=== PATIENT | female | born 1980 | race Caucasian/White ===

== ENCOUNTER → 2016-11-14 | Outpatient (CLI) | payer MEDICAID ==
[~2016-11-14] MED LIST: ABILIFY; ABILIFY 10MG TA10 MG PO; ABILIFY5 MG PO; ACIPHEX20 MG PO; ALEVE220 MG PO; AMBIEN 10MG10 MG PO; AMITRIPTYLINE H10 M1 PO; AMITRIPTYLINE10 MG PO; ANTIBIOTIC; ANTIVERT 25MG25 MG PO; ANTIVERT/2525 M1 PO; APRISO0.375 GM PO; AZULFIDINE500 MG/TAB PO; B-121000 MCG PO; BACTRIM DS 8001 TAB PO; BUPROPRION; BUTALBITAL/APAP1 CAP PO; CEFTIN250 M1 PO; CEPHALEXIN500 M1 PO; CIPRO 500MG TA500 MG PO; ELAVIL50 MG PO; ESZOPICOLONE; FENTANYL 25 MCG TOP; FIORICET 325 MG1 TA1 PO; FIORICET 325 MG1 TAB; FIORICET 325 MG1 TAB PO; FLEXERIL 1010 MG/TAB PO; FLEXERIL10 MG PO; FLOVENT 110MCG7.9 GM IH; GABAPENTIN PO; GLUCOPHAGE PO; GLUCOPHAGE1000 MG PO; HUMALOG100 U/ML; HUMALOG100 U/ML SC; IBU800 M1 PO; IMITREX 6M6 MG/0.5 M SQ; INDERAL; INDERAL 10MG10 MG PO; INDERAL 20MG20 MG PO; INSULIN HUMA100 U/ML IJ; INSULIN NOVO100 U/ML IJ; IRON TABLETS325 MG PO; IRON50 MG PO; LANTIS SQ; LANTUS; LANTUS SQ; LANTUS100 U/ML; LANTUS100 U/ML SC; LEVAQUIN 250MG250 MG PO; LEVAQUIN 5500 MG/TAB PO; LEVBID0.375 MG PO; LEVEMIR FLEX100 U/ML SQ; LEVEMIR SQ; LEVOTHYROXINE PO; LEVOXYL0.088 MG PO; LEVOXYL0.1 MG PO; LEVOXYL0.112 MG PO; LEVOXYL0.15 MG PO; LEXAPRO 10MG10 MG PO; LEXAPRO20 MG PO; LIALDA 1.2 GM1.2 GM PO; LORTAB 5/500 501 TAB PO; MAXALT MLT10 MG/TAB PO; METHOCARBAMOL500 MG PO; NAPROSYN500 MG PO; NAPROXEN 3375 MG/TAB PO; NEURONTIN300 MG/CAP PO; NORCO 325 MG-51 TAB PO; NORCO 325 MG-7.1 TAB PO; NOVLOG SQ; NOVOLOG 100U100 U/M1 SC; NOVOLOG 100U100 U/M1 SQ; NOVOLOG FLEX100 U/ML SQ; NOVOLOG100 U/ML SC; PAMELOR 10MG10 MG PO; PAMELOR50 MG PO; PENTASA250 MG PO; PERCOCET 325 MG1 TA2 PO; PERCOCET 5/321 UDTAB PO; PHENERGAN 25 TA25 MG PO; PHENERGAN25 MG RC; POTASSIUM CH2 MEQ/ML PO; PREDNISONE1 MG PO; PREVACID 30MG30 M1 PO; PREVACID 30MG30 MG PO; PRILOSEC 20MG20 MG PO; PRINIVIL5 MG PO; PROMETHAZINE12.5 M5 PO; REGLAN 10MG10 MG/TAB PO; SINGULAIR 110 MG/TAB PO; SULFASALAZINE500 MG PO; SYMLINPEN1000 MCG/M SQ; SYNTHROID0.088 MG/T PO; SYNTHROID0.1 MG/TAB PO; SYNTHROID0.112 MG/T PO; SYNTHROID0.2 MG/TAB PO; TOPAMAX 100MG100 M1 PO; TRESIBA FL100 UNIT/1 SQ; TRIAMCINOLONE A15 G2 TP; TYLENOL/CODEINE1 ML PO; ULTRAM 50MG TAB50 MG PO; ULTRAM50 MG PO; UP TO DATE; VALTREX1 GM PO; VENTOLIN0.09 MG IH; VIIBRYD10 MG PO; VITAMIN D31000 IU PO; WELLBUTRIN XL150 MG PO; ZOCOR 10MG10 MG PO; ZOCOR 20MG20 MG PO; ZOFRAN 4MG T4 MG/TAB PO; ZOFRAN4 M1 PO; [UNRECOGNIZED DRUG - OTHER]; [UNRECOGNIZED DRUG - OTHER]; [UNRECOGNIZED DRUG - OTHER]; [UNRECOGNIZED DRUG - OTHER]; [UNRECOGNIZED DRUG - OTHER] PO; [UNRECOGNIZED DRUG - REMARK]
== END ==
LOC: COL.RAD 10:09
DX: K50.119 Crohn's disease of large intestine with unspecified complications (principal); K52.89 Other specified noninfective gastroenteritis and colitis
CPT/HCPCS: Q9967

== ENCOUNTER 2017-01-22 10:35 | Emergency (ER) | payer MEDICAID ==
[~2017-01-22] VITALS: Ht 162.6 cm; Wt 71.8 kg
[~2017-01-22 10:35] MED LIST changes: -B-121000 MCG PO; -SYMLINPEN1000 MCG/M SQ; -SYNTHROID0.088 MG/T PO; -TRESIBA FL100 UNIT/1 SQ; -VITAMIN D31000 IU PO
[2017-01-22 11:02] VITALS: BP 127/97; TEMP 97.9
[2017-01-22] MEDS ORDERED: SYNTHROID0.088 MG/T PO (11:51)
[2017-01-22] MEDS ORDERED: TRESIBA FL100 UNIT/1 SQ (11:52)
[2017-01-22] MEDS ORDERED: B-121000 MCG PO (11:54)
[2017-01-22] MEDS ORDERED: VITAMIN D31000 IU PO (11:55)
[2017-01-22 12:52] VITALS: PULSE 103
== END 2017-01-22 12:53 | disposition home or self-care (01) ==
LOC: COL.ER 10:35
DX: J20.9 Acute bronchitis, unspecified (principal); I10 Essential (primary) hypertension; Z79.4 Long term (current) use of insulin

== ENCOUNTER → 2017-04-01 | Outpatient (CLI) | payer MEDICAID ==
[~2017-04-01] MED LIST changes: +B-121000 MCG PO; +SYMLINPEN1000 MCG/M SQ; +SYNTHROID0.088 MG/T PO; +TRESIBA FL100 UNIT/1 SQ; +VITAMIN D31000 IU PO
== END ==
LOC: COL.RAD 05:55
DX: R11.0 Nausea (principal); K30 Functional dyspepsia
CPT/HCPCS: A9541

== ENCOUNTER 2017-05-18 06:57 | Emergency (ER) | payer MEDICAID ==
[~2017-05-18] VITALS: Ht 162.6 cm; Wt 81.4 kg
[~2017-05-18 06:57] MED LIST changes: -SYMLINPEN1000 MCG/M SQ
[2017-05-18 06:59] VITALS: TEMP 98.4
[2017-05-18] MEDS ORDERED: SYMLINPEN1000 MCG/M SQ (07:17)
[2017-05-18 08:30] VITALS: BP 124/84; PULSE 102
== END 2017-05-18 08:31 | disposition home or self-care (01) ==
LOC: COL.ER 06:57
DX: G43.909 Migraine, unspecified, not intractable, without status migrainosus (principal); E10.9 Type 1 diabetes mellitus without complications; Z79.4 Long term (current) use of insulin; E03.9 Hypothyroidism, unspecified; F32.9 Major depressive disorder, single episode, unspecified; K21.9 Gastro-esophageal reflux disease without esophagitis
CPT/HCPCS: J0595; J2550

== ENCOUNTER 2017-06-08 16:18 | Emergency (ER) | payer MEDICAID ==
[~2017-06-08] VITALS: Ht 162.6 cm; Wt 80.0 kg
[~2017-06-08 16:18] MED LIST changes: +SYMLINPEN1000 MCG/M SQ
[2017-06-08 16:23] VITALS: BP 138/79; TEMP 98.7
[2017-06-08 18:03] VITALS: PULSE 104
== END 2017-06-08 18:14 | disposition home or self-care (01) ==
LOC: COL.ER 16:18
DX: G43.909 Migraine, unspecified, not intractable, without status migrainosus (principal); E11.9 Type 2 diabetes mellitus without complications; F32.9 Major depressive disorder, single episode, unspecified; E03.9 Hypothyroidism, unspecified; Z79.4 Long term (current) use of insulin
CPT/HCPCS: J0595; J2550

== ENCOUNTER 2017-07-07 08:38 | Emergency (ER) | payer MEDICAID ==
[~2017-07-07] VITALS: Ht 162.6 cm; Wt 83.2 kg
[2017-07-07 11:23] VITALS: BP 138/88; PULSE 95; TEMP 99.4
== END 2017-07-07 11:24 | disposition home or self-care (01) ==
LOC: COL.ER 08:38
DX: G43.909 Migraine, unspecified, not intractable, without status migrainosus (principal); E11.9 Type 2 diabetes mellitus without complications; F32.9 Major depressive disorder, single episode, unspecified; E78.5 Hyperlipidemia, unspecified; E03.9 Hypothyroidism, unspecified; K21.9 Gastro-esophageal reflux disease without esophagitis; F17.210 Nicotine dependence, cigarettes, uncomplicated; Z90.710 Acquired absence of both cervix and uterus; Z79.4 Long term (current) use of insulin
CPT/HCPCS: J0595; J1200; J2550

== ENCOUNTER 2017-08-17 16:11 | Emergency (ER) | payer MEDICAID ==
[~2017-08-17] VITALS: Ht 162.6 cm; Wt 83.6 kg
[2017-08-17 16:14] VITALS: BP 141/80; TEMP 98.5
[2017-08-17 17:24] VITALS: PULSE 86
== END 2017-08-17 17:25 | disposition home or self-care (01) ==
LOC: COL.ER 16:11
DX: G43.909 Migraine, unspecified, not intractable, without status migrainosus (principal); E11.9 Type 2 diabetes mellitus without complications; Z79.4 Long term (current) use of insulin
CPT/HCPCS: J0595; J2550

== ENCOUNTER 2017-08-30 12:17 | Emergency (ER) | payer MEDICAID ==
[~2017-08-30] VITALS: Ht 162.6 cm; Wt 85.5 kg
[2017-08-30 12:19] VITALS: BP 155/93; TEMP 98.6
[2017-08-30 13:55] VITALS: PULSE 86
== END 2017-08-30 13:56 | disposition home or self-care (01) ==
LOC: COL.ER 12:17
DX: G43.909 Migraine, unspecified, not intractable, without status migrainosus (principal); E10.9 Type 1 diabetes mellitus without complications; Z79.4 Long term (current) use of insulin
CPT/HCPCS: J0595; J2550

== ENCOUNTER 2017-09-19 11:11 | Emergency (ER) | payer MEDICAID ==
[~2017-09-19] VITALS: Ht 162.6 cm; Wt 85.9 kg
[2017-09-19 11:16] VITALS: BP 149/82; PULSE 92; TEMP 98.6
== END 2017-09-19 13:30 | disposition home or self-care (01) ==
LOC: COL.ER 11:11
DX: G43.909 Migraine, unspecified, not intractable, without status migrainosus (principal); F32.9 Major depressive disorder, single episode, unspecified; E10.9 Type 1 diabetes mellitus without complications; Z79.4 Long term (current) use of insulin; Z90.49 Acquired absence of other specified parts of digestive tract; Z90.89 Acquired absence of other organs; Z90.710 Acquired absence of both cervix and uterus
CPT/HCPCS: J0595; J2550

== ENCOUNTER → 2017-10-08 | Outpatient (CLI) | payer MEDICAID | LOC: COL.RAD 13:26 | DX: R51 Headache (principal) | CPT/HCPCS: A9585 ==

== ENCOUNTER 2017-10-12 07:35 | Emergency (ER) | payer MEDICAID ==
[~2017-10-12] VITALS: Ht 162.6 cm; Wt 86.8 kg
[2017-10-12 07:39] VITALS: BP 128/79; TEMP 98.3
[2017-10-12] MEDS ORDERED: ADALAT CC30 MG PO (08:11)
[2017-10-12 08:32] VITALS: PULSE 96
== END 2017-10-12 08:44 | disposition home or self-care (01) ==
LOC: COL.ER 07:35
DX: G43.909 Migraine, unspecified, not intractable, without status migrainosus (principal); Z79.4 Long term (current) use of insulin
CPT/HCPCS: J0595; J2550

== ENCOUNTER → 2017-10-14 | Outpatient (CLI) | payer MEDICAID ==
[~2017-10-14] MED LIST changes: +ADALAT CC30 MG PO
== END ==
LOC: COL.VAS 13:16
DX: M79.89 Other specified soft tissue disorders (principal); M79.661 Pain in right lower leg

== ENCOUNTER 2017-10-18 16:55 | Emergency (ER) | payer MEDICAID ==
[~2017-10-18] VITALS: Ht 162.6 cm; Wt 87.7 kg
[2017-10-18 16:59] VITALS: TEMP 98.5
[2017-10-18 20:07] VITALS: BP 123/75; PULSE 94
== END 2017-10-18 20:09 | disposition home or self-care (01) ==
LOC: COL.ER 16:55
DX: R51 Headache (principal); K21.9 Gastro-esophageal reflux disease without esophagitis; F32.9 Major depressive disorder, single episode, unspecified; E10.9 Type 1 diabetes mellitus without complications; Z79.4 Long term (current) use of insulin; Z90.49 Acquired absence of other specified parts of digestive tract; Z90.89 Acquired absence of other organs; Z90.710 Acquired absence of both cervix and uterus; Z98.890 Other specified postprocedural states
CPT/HCPCS: J0595; J2550

== ENCOUNTER 2017-11-17 20:02 | Emergency (ER) | payer MEDICAID ==
[~2017-11-17] VITALS: Ht 162.6 cm; Wt 87.7 kg
[2017-11-17 20:04] VITALS: BP 142/74; PULSE 100; TEMP 99.5
== END 2017-11-17 21:10 | disposition home or self-care (01) ==
LOC: COL.ER 20:02
DX: G43.909 Migraine, unspecified, not intractable, without status migrainosus (principal); E10.9 Type 1 diabetes mellitus without complications; Z90.710 Acquired absence of both cervix and uterus
CPT/HCPCS: J0595; J2550

== ENCOUNTER 2017-11-29 14:32 | Emergency (ER) | payer MEDICAID ==
[~2017-11-29] VITALS: Ht 160 cm; Wt 84.1 kg
[2017-11-29 14:42] VITALS: TEMP 98.9
[2017-11-29] MEDS ORDERED: LANTUS100 U/ML SQ (15:32)
[2017-11-29 16:02] VITALS: BP 122/72; PULSE 88
== END 2017-11-29 16:02 | disposition home or self-care (01) ==
LOC: COL.ER 14:32
DX: G43.909 Migraine, unspecified, not intractable, without status migrainosus (principal); E10.9 Type 1 diabetes mellitus without complications; Z90.49 Acquired absence of other specified parts of digestive tract; Z90.710 Acquired absence of both cervix and uterus; Z90.89 Acquired absence of other organs; Z79.4 Long term (current) use of insulin
CPT/HCPCS: J0595; J2550

== ENCOUNTER 2017-12-17 11:02 | Emergency (ER) | payer MEDICAID ==
[~2017-12-17] VITALS: Ht 160 cm; Wt 82.7 kg
[~2017-12-17 11:02] MED LIST changes: +LANTUS100 U/ML SQ
[2017-12-17 11:06] VITALS: BP 135/73; TEMP 99
[2017-12-17] MEDS ORDERED: DESYREL 50MG50 MG PO (11:52)
[2017-12-17] MEDS ORDERED: PHENERGAN 25 TA25 MG PO (11:54)
[2017-12-17 13:26] VITALS: PULSE 79
== END 2017-12-17 13:27 | disposition home or self-care (01) ==
LOC: COL.ER 11:02
DX: R51 Headache (principal); E10.9 Type 1 diabetes mellitus without complications; F32.9 Major depressive disorder, single episode, unspecified; Z90.89 Acquired absence of other organs; Z90.49 Acquired absence of other specified parts of digestive tract; Z90.710 Acquired absence of both cervix and uterus; Z79.4 Long term (current) use of insulin
CPT/HCPCS: J0595; J2550

== ENCOUNTER 2018-01-04 08:25 | Emergency (ER) | payer MEDICAID ==
[~2018-01-04] VITALS: Ht 160 cm; Wt 84.1 kg
[~2018-01-04 08:25] MED LIST changes: +DESYREL 50MG50 MG PO
[2018-01-04 08:28] VITALS: BP 130/66; PULSE 111; TEMP 97.7
== END 2018-01-04 09:52 | disposition home or self-care (01) ==
LOC: COL.ER 08:25
DX: R51 Headache (principal); E11.9 Type 2 diabetes mellitus without complications; F32.9 Major depressive disorder, single episode, unspecified; Z79.4 Long term (current) use of insulin; Z90.89 Acquired absence of other organs; Z90.49 Acquired absence of other specified parts of digestive tract; Z90.710 Acquired absence of both cervix and uterus; Z98.890 Other specified postprocedural states
CPT/HCPCS: J0595; J2550

== ENCOUNTER 2018-01-22 06:47 | Emergency (ER) | payer MEDICAID ==
[~2018-01-22] VITALS: Ht 160 cm; Wt 80.5 kg
[2018-01-22 06:51] VITALS: BP 115/73
[2018-01-22 08:07] VITALS: PULSE 92; TEMP 97.8
== END 2018-01-22 08:08 | disposition home or self-care (01) ==
LOC: COL.ER 06:47
DX: G43.909 Migraine, unspecified, not intractable, without status migrainosus (principal); F31.9 Bipolar disorder, unspecified; Z98.890 Other specified postprocedural states; E10.9 Type 1 diabetes mellitus without complications; Z79.4 Long term (current) use of insulin
CPT/HCPCS: J0595; J2550

== ENCOUNTER 2018-02-03 18:13 | Emergency (ER) | payer MEDICAID ==
[~2018-02-03] VITALS: Ht 160 cm; Wt 79.5 kg
[2018-02-03 18:25] VITALS: BP 135/83; TEMP 98.3
[2018-02-03 19:38] VITALS: PULSE 77
== END 2018-02-03 19:35 | disposition home or self-care (01) ==
LOC: COL.ER 18:13
DX: G43.909 Migraine, unspecified, not intractable, without status migrainosus (principal); E11.9 Type 2 diabetes mellitus without complications; E03.9 Hypothyroidism, unspecified; F32.9 Major depressive disorder, single episode, unspecified; Z90.710 Acquired absence of both cervix and uterus; Z90.49 Acquired absence of other specified parts of digestive tract; Z90.89 Acquired absence of other organs; Z79.4 Long term (current) use of insulin
CPT/HCPCS: J0595; J2550

== ENCOUNTER 2018-03-13 09:40 | Emergency (ER) | payer MEDICAID ==
[~2018-03-13] VITALS: Ht 160 cm; Wt 72.7 kg
[2018-03-13 09:58] VITALS: BP 119/81; TEMP 98.4
[2018-03-13 11:34] VITALS: PULSE 80
== END 2018-03-13 11:33 | disposition home or self-care (01) ==
LOC: COL.ER 09:40
DX: G43.909 Migraine, unspecified, not intractable, without status migrainosus (principal); E10.9 Type 1 diabetes mellitus without complications; F32.9 Major depressive disorder, single episode, unspecified; K21.9 Gastro-esophageal reflux disease without esophagitis; E03.9 Hypothyroidism, unspecified; Z90.89 Acquired absence of other organs; Z90.49 Acquired absence of other specified parts of digestive tract; Z90.710 Acquired absence of both cervix and uterus; Z79.4 Long term (current) use of insulin
CPT/HCPCS: J0595; J2550

== ENCOUNTER 2018-03-20 09:03 | Emergency (ER) | payer MEDICAID ==
[~2018-03-20] VITALS: Ht 160 cm; Wt 72.7 kg
[2018-03-20 09:10] VITALS: TEMP 97.6
[2018-03-20 10:46] LABS: BASO % 0.3 % (0.0-2.0); EOS # 0.1 (0.0-0.7); EOS % 0.7 % (0-4.0); GRAN # 6.9 (1.4-6.5); GRAN % 74.6 % (42.2-75.2); LYMPH # 1.8 (1.2-3.4); LYMPH % 19.2 % (20.0-51.0); MEAN CELL VOLUME 75 fl (80.0-100.0); MEAN CORPUSCULAR HEMOGLOBIN 25 pg (27.0-31.0); MEAN CORPUSCULAR HGB CONC 33 g/dl (33.0-37.0); MEAN PLATELET VOLUME 10.9 fl (7.4-10.4); MONO # 0.4 (0.1-0.6); MONO % 4.7 % (1.7-9.3); PLATELET COUNT 240 K/mm3 (130-400); RED BLOOD COUNT 4.46 M/mm3 (4.10-5.30); REDCELL DISTRIBUTION WIDTH-CV 14.8 % (11.5-14.5)
[2018-03-20 10:47] LABS: HEMATOCRIT 33.4 % (37.0-47.0)
[2018-03-20 10:48] LABS: CALCIUM 9.8 mg/dL (8.4-10.2); CREATININE, serum 0.8 mg/dL (0.52-1.25); POTASSIUM 3.8 mmol/L (3.4-5.0)
[2018-03-20 11:09] LABS: ARTERIAL BLD GAS O2 SATURATION 95.6 % (92-100); ARTERIAL BLD GAS TCO2 CT 20.1; ARTERIAL BLOOD GAS BASE EXCESS -5.3 (-2-2); ARTERIAL BLOOD GAS HCO3 19.1 meq/L (22-26); ARTERIAL BLOOD GAS PCO2 33.1 mmHg (35-45); ARTERIAL BLOOD GAS PO2 82.7 mmHg (80-100); ARTERIAL BLOOD GAS pH 7.38 (7.35-7.45)
[2018-03-20 12:17] LABS: COLLECTION METHOD CLEAN CATCH
[2018-03-20 12:23] LABS: MUCOUS Present /lpf; PH 5 (5-8); SQUAMOUS EPITHELIAL 0-2 /hpf; URINE APPEARANCE Clear; URINE BACTERIA None Seen /hpf; URINE BILIRUBIN Negative (NEGATIVE); URINE BLOOD 1+ (NEGATIVE); URINE COLOR Straw; URINE GLUCOSE 3+ (NEGATIVE); URINE KETONE 2+ (NEGATIVE); URINE LEUKOCYTE ESTERASE Negative (NEGATIVE); URINE NITRATE Negative (NEGATIVE); URINE PROTEIN(semi-quant) Negative (NEGATIVE); URINE RBC None Seen /hpf; URINE UROBILINOGEN Negative (NEGATIVE)
[2018-03-20 13:27] LABS: CALCIUM 8.8 mg/dL (8.4-10.2); CREATININE, serum 0.66 mg/dL (0.52-1.25); POTASSIUM 3.5 mmol/L (3.4-5.0)
[2018-03-20 13:40] VITALS: BP 112/77; PULSE 89
== END 2018-03-20 14:26 | disposition home or self-care (01) ==
LOC: COL.ER 09:03
PROVIDERS: Emergency Medicine
DX: E10.9 Type 1 diabetes mellitus without complications (principal); I10 Essential (primary) hypertension; E78.5 Hyperlipidemia, unspecified; E03.9 Hypothyroidism, unspecified; Z90.49 Acquired absence of other specified parts of digestive tract; Z90.710 Acquired absence of both cervix and uterus; Z90.89 Acquired absence of other organs; Z87.891 Personal history of nicotine dependence; Z79.4 Long term (current) use of insulin
CPT/HCPCS: J1815; J2765; J7030

== ENCOUNTER 2018-04-12 19:17 | Emergency (ER) | payer MEDICAID ==
[2018-04-12 19:23] VITALS: TEMP 98.1
[2018-04-12 21:55] VITALS: BP 130/82; PULSE 89
== END 2018-04-12 21:55 | disposition home or self-care (01) ==
LOC: COL.ER 19:17
DX: G43.909 Migraine, unspecified, not intractable, without status migrainosus (principal); Z79.4 Long term (current) use of insulin
CPT/HCPCS: J0595; J2550

== ENCOUNTER → 2018-04-29 | Outpatient (CLI) | payer MEDICAID | LOC: COL.RAD 04-27 09:45 | DX: M17.11 Unilateral primary osteoarthritis, right knee (principal); M94.8X8 Other specified disorders of cartilage, other site ==

== ENCOUNTER 2018-05-05 08:37 | Emergency (ER) | payer MEDICAID ==
[~2018-05-05] VITALS: Ht 160 cm; Wt 71.4 kg
[2018-05-05 08:41] VITALS: BP 139/81; TEMP 99.1
[2018-05-05 09:15] VITALS: PULSE 94
== END 2018-05-05 09:16 | disposition home or self-care (01) ==
LOC: COL.ER 08:37
DX: G43.909 Migraine, unspecified, not intractable, without status migrainosus (principal); I10 Essential (primary) hypertension; E78.5 Hyperlipidemia, unspecified; Z79.4 Long term (current) use of insulin
CPT/HCPCS: J0595; J2550

== ENCOUNTER 2018-10-27 12:51 | Emergency (ER) | payer MEDICAID ==
[~2018-10-27] VITALS: Ht 160 cm; Wt 71.8 kg
[2018-10-27 12:59] VITALS: BP 141/76; TEMP 98.2
[2018-10-27] MEDS ORDERED: SYNTHROID0.1 MG/TAB PO (13:10)
[2018-10-27 13:20] VITALS: PULSE 86
== END 2018-10-27 13:22 | disposition home or self-care (01) ==
LOC: COL.ER 12:51
DX: S66.911A Strain of unspecified muscle, fascia and tendon at wrist and hand level, right hand, initial encounter (principal); E10.9 Type 1 diabetes mellitus without complications; E03.9 Hypothyroidism, unspecified; Z87.39 Personal history of other diseases of the musculoskeletal system and connective tissue; X50.3XXA Overexertion from repetitive movements, initial encounter

== ENCOUNTER 2018-12-03 08:30 | Outpatient (RCR) | payer MEDICAID | END 2019-02-09 | disposition home or self-care (01) | LOC: MKS.ESL.PT | DX: M25.512 Pain in left shoulder (principal) ==

== ENCOUNTER 2019-06-04 11:35 | Emergency (ER) | payer MEDICAID ==
[~2019-06-04] VITALS: Ht 160 cm; Wt 70.5 kg
[2019-06-04 11:40] VITALS: TEMP 98.2
[2019-06-04] MEDS ORDERED: BRINTELLIX10 PO (11:45)
[2019-06-04 13:00] LABS: COLLECTION METHOD CLEAN CATCH
[2019-06-04 13:05] LABS: MUCOUS Present /lpf; PH 5 (5-8); SQUAMOUS EPITHELIAL 0-2 /hpf; URINE APPEARANCE Clear; URINE BACTERIA None Seen /hpf; URINE BILIRUBIN Negative (NEGATIVE); URINE BLOOD Negative (NEGATIVE); URINE COLOR Straw; URINE GLUCOSE 3+ (NEGATIVE); URINE KETONE 2+ (NEGATIVE); URINE LEUKOCYTE ESTERASE Negative (NEGATIVE); URINE NITRATE Negative (NEGATIVE); URINE PROTEIN(semi-quant) Negative (NEGATIVE); URINE RBC None Seen /hpf; URINE UROBILINOGEN Negative (NEGATIVE)
[2019-06-04 13:15] LABS: BASO % 0.1 % (0.0-2.0); EOS % 0.2 % (0-4.0); GRAN # 10.3 (1.4-6.5); GRAN % 87.8 % (42.2-75.2); HEMOGLOBIN 11.9 g/dl (12.5-16.0); LYMPH % 8.8 % (20.0-51.0); MEAN CELL VOLUME 82 fl (80.0-100.0); MEAN CORPUSCULAR HEMOGLOBIN 27 pg (27.0-31.0); MEAN CORPUSCULAR HGB CONC 33 g/dl (33.0-37.0); MEAN PLATELET VOLUME 11.6 fl (7.4-10.4); MONO # 0.3 (0.1-0.6); MONO % 2.7 % (1.7-9.3); PLATELET COUNT 256 K/mm3 (130-400); REDCELL DISTRIBUTION WIDTH-CV 13.2 % (11.5-14.5)
[2019-06-04 13:21] LABS: HEMATOCRIT 36.1 % (37.0-47.0)
[2019-06-04 13:26] LABS: ALANINE AMINOTRANSFERASE 22 U/L (9-52); ALBUMIN 4.3 gm/dL (3.5-5.0); ALKALINE PHOSPHATASE 124 U/L (50-136); ANION GAP 18 mmol/L (7-16); AST,SGOT 27 U/L (15-37); BLOOD UREA NITROGEN 18 mg/dL (7-17); CALCIUM 9.6 mg/dL (8.4-10.2); CARBON DIOXIDE 19 mmol/L (22-30); CHLORIDE 100 mmol/L (98-107); CREATININE, serum 0.87 (0.52-1.25); POTASSIUM 4.7 mmol/L (3.4-5.0); SODIUM 138 mmol/L (137-145); TOTAL PROTEIN 7.4 gm/dL (6.4-8.2)
[2019-06-04 13:29] LABS: GLUCOSE 531 mg/dL (74-106)
[2019-06-04 13:37] LABS: TROPONIN-I < 0.012 ng/mL (0.000-0.035)
[2019-06-04] MEDS ORDERED: REGLAN 10MG10 MG/TAB PO (14:26)
[2019-06-04 16:05] VITALS: BP 119/60; PULSE 105
== END 2019-06-04 16:10 | disposition home or self-care (01) ==
LOC: COL.ER 11:35
PROVIDERS: Emergency Medicine
DX: E11.65 Type 2 diabetes mellitus with hyperglycemia (principal); R07.89 Other chest pain; E11.43 Type 2 diabetes mellitus with diabetic autonomic (poly)neuropathy; K31.84 Gastroparesis; Z79.4 Long term (current) use of insulin
CPT/HCPCS: J1815; J2765; J7030

== ENCOUNTER 2019-08-26 10:30 | Outpatient (RCR) | payer MEDICAID ==
[~2019-08-26 10:30] MED LIST changes: +BRINTELLIX10 PO
== END 2019-09-13 11:39 | disposition home or self-care (01) ==
LOC: MKS.ESL.OT 10:30
DX: G56.01 Carpal tunnel syndrome, right upper limb (principal); G56.21 Lesion of ulnar nerve, right upper limb

== ENCOUNTER 2019-11-07 09:20 | Inpatient (IN) | payer MEDICAID ==
[2019-11-07] VITALS (7 sets, daily range): BP systolic 108–120; BP diastolic 70–85; PULSE 87–93; TEMP 97.7–98.2
[~2019-11-07] VITALS: Ht 160 cm; Wt 70.4 kg
[2019-11-07 10:12] LABS: BASO % 0.4 % (0.0-2.0); EOS % 0.2 % (0-4.0); GRAN # 8.9 (1.4-6.5); GRAN % 84.7 % (42.2-75.2); HEMATOCRIT 38.5 % (37.0-47.0); HEMOGLOBIN 12.6 g/dl (12.5-16.0); LYMPH # 1.3 (1.2-3.4); LYMPH % 12.2 % (20.0-51.0); MEAN CELL VOLUME 85 fl (80.0-100.0); MEAN CORPUSCULAR HEMOGLOBIN 28 pg (27.0-31.0); MEAN CORPUSCULAR HGB CONC 33 g/dl (33.0-37.0); MEAN PLATELET VOLUME 11.2 fl (7.4-10.4); MONO # 0.2 (0.1-0.6); MONO % 2.1 % (1.7-9.3); PLATELET COUNT 212 K/mm3 (130-400); RED BLOOD COUNT 4.54 M/mm3 (4.10-5.30); REDCELL DISTRIBUTION WIDTH-CV 12.6 % (11.5-14.5)
[2019-11-07 10:25] LABS: ALANINE AMINOTRANSFERASE 18 U/L (9-52); ALBUMIN 4.7 gm/dL (3.5-5.0); ALKALINE PHOSPHATASE 135 U/L (50-136); ANION GAP 21 mmol/L (7-16); AST,SGOT 24 U/L (15-37); BILIRUBIN,TOTAL 1.1 mg/dL (0.0-1.0); BLOOD UREA NITROGEN 18 mg/dL (7-17); CARBON DIOXIDE 15 mmol/L (22-30); CHLORIDE 100 mmol/L (98-107); CREATININE, serum 0.97 (0.52-1.25); LIPASE 40 U/L (23-300); SODIUM 137 mmol/L (137-145); TOTAL PROTEIN 7.9 gm/dL (6.4-8.2)
[2019-11-07 10:29] LABS: GLUCOSE 561 mg/dL (74-106)
[2019-11-07 10:30] LABS: ACETONE,SERUM SMALL
[2019-11-07 11:37] LABS: COLLECTION METHOD CLEAN CATCH
[2019-11-07 11:47] LABS: PH 5 (5-8); SQUAMOUS EPITHELIAL 0-2 /hpf; URINE APPEARANCE Clear; URINE BACTERIA Rare /hpf; URINE BILIRUBIN Negative (NEGATIVE); URINE BLOOD Negative (NEGATIVE); URINE COLOR Straw; URINE GLUCOSE 3+ (NEGATIVE); URINE KETONE 2+ (NEGATIVE); URINE LEUKOCYTE ESTERASE Negative (NEGATIVE); URINE NITRATE Negative (NEGATIVE); URINE PROTEIN(semi-quant) Negative (NEGATIVE); URINE RBC 0-2 /hpf; URINE UROBILINOGEN Negative (NEGATIVE)
--- NOTE | 2019-11-07 11:47 | NUR ---
REPORT RECEIVED FROM SHERRIE MAHAJAN IN ED DEPARTMENT.
--- NOTE | 2019-11-07 12:20 | NUR ---
PT BROUGHT OVER VIA STRETCHER TO ICU ROOM 1. PT AWAKE, ALERT, AND ORIENTED X3. INSULIN GTT CURRENTLY INFUSING AT 5 UNITS/HR. TITRATION NOT DONE BY ED STAFF PRIOR TO TRANSFER EVEN THOUGH GLUCOSE NOW 283
[2019-11-07 14:37] LABS: CALCIUM 8.9 mg/dL (8.4-10.2); CREATININE, serum 0.75 (0.52-1.25); POTASSIUM 4.2 mmol/L (3.4-5.0)
[2019-11-07 17:40] LABS: CALCIUM 8.9 mg/dL (8.4-10.2); CREATININE, serum 0.69 (0.52-1.25)
--- NOTE | 2019-11-07 20:00 | NUR ---
PATIENT CAN AMBULATE EASILY FROM BED TO RESTROOM AND BACK VERY INDEPENDENT
[2019-11-07 22:42] LABS: CALCIUM 8.6 mg/dL (8.4-10.2); CREATININE, serum 0.73 (0.52-1.25); POTASSIUM 4.1 mmol/L (3.4-5.0)
[2019-11-08 00:03] VITALS: BP 101/71; PULSE 86; TEMP 97.8
[2019-11-08 04:04] VITALS: BP 122/74; PULSE 83; TEMP 97.8
[2019-11-08 06:12] LABS: BASO % 0.1 % (0.0-2.0); EOS # 0.1 (0.0-0.7); GRAN # 6.5 (1.4-6.5); GRAN % 69.6 % (42.2-75.2); HEMOGLOBIN 10.8 g/dl (12.5-16.0); LYMPH # 2.2 (1.2-3.4); LYMPH % 23.1 % (20.0-51.0); MEAN CELL VOLUME 85 fl (80.0-100.0); MEAN CORPUSCULAR HEMOGLOBIN 28 pg (27.0-31.0); MEAN CORPUSCULAR HGB CONC 33 g/dl (33.0-37.0); MONO # 0.6 (0.1-0.6); MONO % 5.9 % (1.7-9.3); PLATELET COUNT 192 K/mm3 (130-400); RED BLOOD COUNT 3.86 M/mm3 (4.10-5.30)
[2019-11-08 06:30] LABS: ALBUMIN 3.7 gm/dL (3.5-5.0); BILIRUBIN,TOTAL 0.6 mg/dL (0.0-1.0); CALCIUM 8.7 mg/dL (8.4-10.2); CHOLESTEROL RISK RATIO 1.9; CREATININE, serum 0.69 (0.52-1.25); MAGNESIUM 1.5 mg/dL (1.6-2.3); POTASSIUM 4.3 mmol/L (3.4-5.0); TOTAL PROTEIN 6.5 gm/dL (6.4-8.2)
[2019-11-08 06:33] LABS: HEMATOCRIT 32.8 % (37.0-47.0)
[2019-11-08 08:00] VITALS: BP 127/81; PULSE 88; TEMP 97.8
--- NOTE | 2019-11-08 09:11 | NUR ---
Initial visit; Patient thanked Fur Grader for checking on her and offering spiritual care. Patient has good support system in place.
[2019-11-08 12:00] VITALS: TEMP 98.6
--- NOTE | 2019-11-08 15:36 | NUR ---
The patient was discharged before initial intake was completed.
== END 2019-11-08 12:55 | disposition home or self-care (01) | DRG 638 ==
LOC: COL.ER 09:20 → EDBEDREQ 09:40 → ICU 10:59 → EDBEDREQ 11:32 → EDBEDREQTM 11:32 → EDBEDREQSVC 11:32 → ICU 11-08 12:55
PROVIDERS: Emergency Medicine; ADMIT Family Medicine
DX: E10.10 Type 1 diabetes mellitus with ketoacidosis without coma (principal); K50.90 Crohn's disease, unspecified, without complications; G43.909 Migraine, unspecified, not intractable, without status migrainosus; K21.9 Gastro-esophageal reflux disease without esophagitis; E78.5 Hyperlipidemia, unspecified; E10.43 Type 1 diabetes mellitus with diabetic autonomic (poly)neuropathy; K31.84 Gastroparesis; F14.90 Cocaine use, unspecified, uncomplicated; E03.9 Hypothyroidism, unspecified; E86.0 Dehydration; F11.90 Opioid use, unspecified, uncomplicated; Z90.710 Acquired absence of both cervix and uterus; Z90.49 Acquired absence of other specified parts of digestive tract; Z79.4 Long term (current) use of insulin; Z88.5 Allergy status to narcotic agent; Z88.8 Allergy status to other drugs, medicaments and biological substances
CPT/HCPCS: OP; 99239; J1650; J1815; J2405; J3475; J3480; J7030

== ENCOUNTER 2019-11-29 22:23 | Inpatient (IN) | payer MEDICAID ==
[~2019-11-29] VITALS: Ht 160 cm; Wt 74.0 kg
[2019-11-29 23:33] LABS: BASO % 0.2 % (0.0-2.0); EOS % 0.1 % (0-4.0); GRAN # 11.5 (1.4-6.5); HEMOGLOBIN 12.1 g/dl (12.5-16.0); LYMPH # 0.9 (1.2-3.4); LYMPH % 7.2 % (20.0-51.0); MEAN CELL VOLUME 84 fl (80.0-100.0); MEAN CORPUSCULAR HEMOGLOBIN 28 pg (27.0-31.0); MEAN CORPUSCULAR HGB CONC 33 g/dl (33.0-37.0); MEAN PLATELET VOLUME 11.3 fl (7.4-10.4); MONO # 0.3 (0.1-0.6); PLATELET COUNT 249 K/mm3 (130-400); RED BLOOD COUNT 4.34 M/mm3 (4.10-5.30)
[2019-11-29 23:39] LABS: ALANINE AMINOTRANSFERASE 38 U/L (9-52); ALBUMIN 4.9 gm/dL (3.5-5.0); ALKALINE PHOSPHATASE 113 U/L (50-136); ANION GAP 19 mmol/L (7-16); AST,SGOT 33 U/L (15-37); BLOOD UREA NITROGEN 23 mg/dL (7-17); CALCIUM 10.1 mg/dL (8.4-10.2); CARBON DIOXIDE 19 mmol/L (22-30); CHLORIDE 99 mmol/L (98-107); CREATININE, serum 0.95 (0.52-1.25); HEMATOCRIT 36.5 % (37.0-47.0); LIPASE 62 U/L (23-300); POTASSIUM 4.6 mmol/L (3.4-5.0); SODIUM 137 mmol/L (137-145)
[2019-11-29 23:40] LABS: GLUCOSE 539 mg/dL (74-106)
[2019-11-29 23:51] LABS: ACETONE,SERUM NEGATIVE
[2019-11-30 00:09] LABS: COLLECTION METHOD CLEAN CATCH
[2019-11-30 00:30] LABS: PH 5 (5-8); SQUAMOUS EPITHELIAL 0-2 /hpf; URINE APPEARANCE Clear; URINE BACTERIA None Seen /hpf; URINE BILIRUBIN Negative (NEGATIVE); URINE BLOOD Negative (NEGATIVE); URINE COLOR Straw; URINE GLUCOSE 3+ (NEGATIVE); URINE KETONE 2+ (NEGATIVE); URINE LEUKOCYTE ESTERASE Negative (NEGATIVE); URINE NITRATE Negative (NEGATIVE); URINE PROTEIN(semi-quant) Negative (NEGATIVE); URINE RBC 0-2 /hpf; URINE UROBILINOGEN Negative (NEGATIVE)
[2019-11-30] MEDS ORDERED: ZANAFLEX2 MG PO (00:45)
[2019-11-30 02:40] LABS: MAGNESIUM 1.6 mg/dL (1.6-2.3); PHOSPHOROUS 3.7 mg/dL (2.5-4.5)
[2019-11-30] MEDS ORDERED: ZOCOR 20MG20 MG PO (03:20)
[2019-11-30] MEDS ORDERED: PROTONIX20 MG PO (03:21)
[2019-11-30] MEDS ORDERED: INSULIN PUMP (03:24)
[2019-11-30 04:00] VITALS: BP 97/59; PULSE 92; TEMP 97.8
[2019-11-30 04:03] LABS: CALCIUM 8.7 mg/dL (8.4-10.2); CREATININE, serum 0.84 (0.52-1.25); POTASSIUM 3.7 mmol/L (3.4-5.0)
[2019-11-30 04:35] VITALS: BP 112/61; PULSE 97; TEMP 98.2
[2019-11-30 05:54] LABS: BASO % 0.2 % (0.0-2.0); GRAN # 8.1 (1.4-6.5); LYMPH # 1.9 (1.2-3.4); LYMPH % 17.3 % (20.0-51.0); MEAN CELL VOLUME 85 fl (80.0-100.0); MEAN CORPUSCULAR HGB CONC 33 g/dl (33.0-37.0); MEAN PLATELET VOLUME 10.7 fl (7.4-10.4); MONO # 0.8 (0.1-0.6); MONO % 7.1 % (1.7-9.3); PLATELET COUNT 199 K/mm3 (130-400); RED BLOOD COUNT 3.42 M/mm3 (4.10-5.30); REDCELL DISTRIBUTION WIDTH-CV 13.1 % (11.5-14.5)
[2019-11-30 05:55] LABS: HEMATOCRIT 29.1 % (37.0-47.0); HEMOGLOBIN 9.5 g/dl (12.5-16.0); MEAN CORPUSCULAR HEMOGLOBIN 28 pg (27.0-31.0)
[2019-11-30 06:03] LABS: CALCIUM 8.2 mg/dL (8.4-10.2); CREATININE, serum 0.81 (0.52-1.25); POTASSIUM 3.8 mmol/L (3.4-5.0)
[2019-11-30 08:00] VITALS: BP 116/71; PULSE 83; TEMP 98.7
[2019-11-30 08:25] LABS: CALCIUM 8.2 mg/dL (8.4-10.2); CREATININE, serum 0.77 (0.52-1.25)
[2019-11-30 12:00] VITALS: BP 116/65; PULSE 87
[2019-11-30 18:09] LABS: CALCIUM 8.8 mg/dL (8.4-10.2); CREATININE, serum 1.02 (0.52-1.25); POTASSIUM 4.8 mmol/L (3.4-5.0)
[2019-11-30 21:33] VITALS: BP 96/46; PULSE 74; TEMP 98.2
[2019-12-01 00:04] VITALS: BP 99/55; PULSE 68; TEMP 98.5
[2019-12-01 04:00] VITALS: BP 125/71; PULSE 74; TEMP 98.6
[2019-12-01 06:53] LABS: BASO % 0.2 % (0.0-2.0); EOS # 0.1 (0.0-0.7); EOS % 1.2 % (0-4.0); GRAN % 60.7 % (42.2-75.2); LYMPH # 2.2 (1.2-3.4); LYMPH % 33.4 % (20.0-51.0); MEAN CELL VOLUME 87 fl (80.0-100.0); MEAN CORPUSCULAR HGB CONC 32 g/dl (33.0-37.0); MEAN PLATELET VOLUME 11.2 fl (7.4-10.4); MONO # 0.3 (0.1-0.6); MONO % 4.2 % (1.7-9.3); PLATELET COUNT 193 K/mm3 (130-400); RED BLOOD COUNT 3.55 M/mm3 (4.10-5.30); REDCELL DISTRIBUTION WIDTH-CV 13.1 % (11.5-14.5)
[2019-12-01 07:00] LABS: CALCIUM 8.6 mg/dL (8.4-10.2); CREATININE, serum 0.9 (0.52-1.25); MAGNESIUM 1.5 mg/dL (1.6-2.3); POTASSIUM 4.8 mmol/L (3.4-5.0)
[2019-12-01 07:10] LABS: HEMATOCRIT 30.7 % (37.0-47.0); HEMOGLOBIN 9.9 g/dl (12.5-16.0); MEAN CORPUSCULAR HEMOGLOBIN 28 pg (27.0-31.0)
[2019-12-01 09:00] VITALS: BP 120/68; PULSE 75; TEMP 98.4
[2019-12-01 11:48] VITALS: BP 102/89; PULSE 80; TEMP 98.3
[2019-12-01 16:19] VITALS: BP 109/63; PULSE 65; TEMP 98.7
[2019-12-01 19:58] VITALS: BP 121/68; PULSE 65; TEMP 98.2
[2019-12-02] VITALS: BP 119/68; PULSE 67; TEMP 98
[2019-12-02 04:03] VITALS: BP 103/63; PULSE 57; TEMP 98.2
[2019-12-02 07:22] VITALS: BP 132/81; PULSE 57; TEMP 98.1
[2019-12-02 07:22] LABS: BASO % 0.2 % (0.0-2.0); EOS # 0.2 (0.0-0.7); EOS % 2.5 % (0-4.0); GRAN # 3.2 (1.4-6.5); GRAN % 53.5 % (42.2-75.2); HEMOGLOBIN 10.3 g/dl (12.5-16.0); LYMPH # 2.2 (1.2-3.4); LYMPH % 36.6 % (20.0-51.0); MEAN CELL VOLUME 83 fl (80.0-100.0); MEAN CORPUSCULAR HEMOGLOBIN 27 pg (27.0-31.0); MEAN CORPUSCULAR HGB CONC 33 g/dl (33.0-37.0); MEAN PLATELET VOLUME 10.7 fl (7.4-10.4); MONO # 0.4 (0.1-0.6); PLATELET COUNT 202 K/mm3 (130-400); RED BLOOD COUNT 3.76 M/mm3 (4.10-5.30); REDCELL DISTRIBUTION WIDTH-CV 12.7 % (11.5-14.5)
[2019-12-02 07:23] LABS: HEMATOCRIT 31.3 % (37.0-47.0)
[2019-12-02 07:28] LABS: CREATININE, serum 0.82 (0.52-1.25)
== END 2019-12-02 11:00 | disposition home or self-care (01) | DRG 638 ==
LOC: COL.ER 22:23 → ICU 11-30 00:38 → SURG 11-30 00:38
PROVIDERS: Emergency Medicine; Nurse Practitioner Family; Physician Assistant; ADMIT Student in an Organized Health Care Education/Training Program
DX: E10.10 Type 1 diabetes mellitus with ketoacidosis without coma (principal); K50.90 Crohn's disease, unspecified, without complications; G43.909 Migraine, unspecified, not intractable, without status migrainosus; K31.84 Gastroparesis; K21.9 Gastro-esophageal reflux disease without esophagitis; E78.5 Hyperlipidemia, unspecified; E03.9 Hypothyroidism, unspecified; F12.90 Cannabis use, unspecified, uncomplicated; F14.90 Cocaine use, unspecified, uncomplicated; E10.43 Type 1 diabetes mellitus with diabetic autonomic (poly)neuropathy; E83.42 Hypomagnesemia; E86.0 Dehydration; Z96.41 Presence of insulin pump (external) (internal); Z90.49 Acquired absence of other specified parts of digestive tract; Z90.710 Acquired absence of both cervix and uterus; Z79.4 Long term (current) use of insulin; Z88.8 Allergy status to other drugs, medicaments and biological substances; Z88.5 Allergy status to narcotic agent
CPT/HCPCS: 99232-AI; 99239; J1650; J1815; J2060; J2405; J2550; J3475; J3480; J7030

== ENCOUNTER 2020-01-12 21:44 | Inpatient (IN) | payer MEDICAID ==
[~2020-01-12] VITALS: Ht 160 cm; Wt 70.8 kg
[~2020-01-12 21:44] MED LIST changes: +INSULIN PUMP; +PROTONIX20 MG PO; +ZANAFLEX2 MG PO
--- NOTE | 2020-01-12 23:11 | NUR ---
Report called over by ED from ZAINA Luu. Patient will be brought over soon
[2020-01-13] VITALS (1118 sets, daily range): BP systolic 95–121; BP diastolic 55–77; PULSE 79–106; TEMP 97.8–98.6; O2SAT 86–100
--- NOTE | 2020-01-13 00:20 | NUR ---
Patient arrives at this time via ED cart. patient transfers self to unit bed. Patient attaached to monitoring equipment. Vitals obtained and are stable. Assessment performed with no significant findings. Patient oriented to unit and room. Call light within reach. Bed in lowest position. siderails up x3. No further needs at this time. Will continue to monitor.
[2020-01-13 02:13] LABS: ACETONE,SERUM MODERATE
[2020-01-13 02:15] LABS: ALANINE AMINOTRANSFERASE 22 U/L (4-34); ALKALINE PHOSPHATASE 125 U/L (50-136); ANION GAP 24 mmol/L (7-16); AST,SGOT 25 U/L (15-37); BILIRUBIN,TOTAL 1.1 mg/dL (0.0-1.0); BLOOD UREA NITROGEN 24 mg/dL (7-17); CARBON DIOXIDE 13 mmol/L (22-30); CHLORIDE 100 mmol/L (98-107); CREATININE, serum 0.92 (0.52-1.25); GLUCOSE 612 mg/dL (74-106); LIPASE 49 U/L (23-300); POTASSIUM 5.1 mmol/L (3.4-5.0); SODIUM 136 mmol/L (137-145)
[2020-01-13] MEDS ORDERED: BAQSIMI3 MG NS (02:20)
[2020-01-13 02:22] LABS: BASO % 0.2 % (0.0-2.0); EOS % 0.1 % (0-4.0); GRAN # 14.9 (1.4-6.5); GRAN % 86.9 % (42.2-75.2); HEMATOCRIT 37.8 % (37.0-47.0); LYMPH # 1.6 (1.2-3.4); LYMPH % 9.4 % (20.0-51.0); MEAN CELL VOLUME 86 fl (80.0-100.0); MEAN CORPUSCULAR HEMOGLOBIN 27 pg (27.0-31.0); MEAN CORPUSCULAR HGB CONC 32 g/dl (33.0-37.0); MEAN PLATELET VOLUME 11.4 fl (7.4-10.4); MONO # 0.5 (0.1-0.6); MONO % 2.9 % (1.7-9.3); PLATELET COUNT 219 K/mm3 (130-400); RED BLOOD COUNT 4.41 M/mm3 (4.10-5.30); REDCELL DISTRIBUTION WIDTH-CV 12.6 % (11.5-14.5)
[2020-01-13 02:22] LABS: COLLECTION METHOD CLEAN CATCH; PH 5 (5-8); SQUAMOUS EPITHELIAL None Seen /hpf; URINE APPEARANCE Clear; URINE BACTERIA None Seen /hpf; URINE BILIRUBIN Negative (NEGATIVE); URINE BLOOD Negative (NEGATIVE); URINE COLOR Straw; URINE GLUCOSE 3+ (NEGATIVE); URINE KETONE 2+ (NEGATIVE); URINE LEUKOCYTE ESTERASE Negative (NEGATIVE); URINE NITRATE Negative (NEGATIVE); URINE PROTEIN(semi-quant) Negative (NEGATIVE); URINE RBC 0-2 /hpf; URINE UROBILINOGEN Negative (NEGATIVE)
[2020-01-13] MEDS ORDERED: FIASP 100100 UNIT/2 SQ (02:22)
[2020-01-13] MEDS ORDERED: PROCARDIA XL 6060 MG PO (02:23)
[2020-01-13] MEDS ORDERED: FLONASE SENSIM9.9 ML NS (02:24)
[2020-01-13] MEDS ORDERED: ANTI-DIARRHEAL2 MG PO (02:25)
[2020-01-13] MEDS ORDERED: VITAMINC1000TA PO (02:26)
[2020-01-13 02:42] LABS: CALCIUM 8.4 mg/dL (8.4-10.2); CREATININE, serum 0.86 (0.52-1.25)
[2020-01-13 03:04] LABS: MAGNESIUM 1.7 mg/dL (1.6-2.3); PHOSPHOROUS 4.4 mg/dL (2.5-4.5)
[2020-01-13 04:27] LABS: BASO % 0.2 % (0.0-2.0); GRAN # 12.1 (1.4-6.5); GRAN % 80.9 % (42.2-75.2); LYMPH # 1.9 (1.2-3.4); LYMPH % 12.8 % (20.0-51.0); MEAN CELL VOLUME 84 fl (80.0-100.0); MEAN CORPUSCULAR HGB CONC 33 g/dl (33.0-37.0); MEAN PLATELET VOLUME 10.9 fl (7.4-10.4); MONO # 0.9 (0.1-0.6); MONO % 5.7 % (1.7-9.3); PLATELET COUNT 142 K/mm3 (130-400); RED BLOOD COUNT 3.22 M/mm3 (4.10-5.30); REDCELL DISTRIBUTION WIDTH-CV 12.7 % (11.5-14.5)
[2020-01-13 04:31] LABS: MEAN CORPUSCULAR HEMOGLOBIN 28 pg (27.0-31.0)
[2020-01-13 04:37] LABS: ALBUMIN 3.2 gm/dL (3.5-5.0); BILIRUBIN,TOTAL 0.4 mg/dL (0.0-1.0); CALCIUM 7.8 mg/dL (8.4-10.2); CREATININE, serum 0.74 (0.52-1.25); TOTAL PROTEIN 5.6 gm/dL (6.4-8.2)
[2020-01-13 07:00] LABS: CALCIUM 7.9 mg/dL (8.4-10.2); CREATININE, serum 0.69 (0.52-1.25)
--- NOTE | 2020-01-13 07:08 | NUR ---
Bedside report given to ZAINA Blancas
--- NOTE | 2020-01-13 08:00 | NUR ---
Shift assessment complete at this time. Plan of care reviewed at bedside with patient. Additional time taken to address any other needs or concerns. Vitals stable at this time. Pt denies pain or any other discomforts. Bed in low position, call light within reach, will continue to monitor.
[2020-01-13 09:05] LABS: CALCIUM 7.9 mg/dL (8.4-10.2); CREATININE, serum 0.66 (0.52-1.25); POTASSIUM 3.8 mmol/L (3.4-5.0)
[2020-01-13 10:41] LABS: CREATININE, serum 0.78 (0.52-1.25); POTASSIUM 3.8 mmol/L (3.4-5.0)
--- NOTE | 2020-01-13 11:38 | NUR ---
Insulin gtt resumed per Dr. Landers's direction. Insulin gtt to run for two hours post Levemir SQ administration and to then be discontinued afterward.
--- NOTE | 2020-01-13 12:00 | NUR ---
Pt resting comfortably in bed. Denies pain or any other discomfort. Vitals stable at this time. Bed in low position, call light within reach, will continue to monitor.
[2020-01-13 12:47] LABS: CREATININE, serum 0.74 (0.52-1.25); POTASSIUM 3.9 mmol/L (3.4-5.0)
[2020-01-13 14:35] LABS: CALCIUM 7.9 mg/dL (8.4-10.2); CREATININE, serum 0.79 (0.52-1.25); POTASSIUM 3.9 mmol/L (3.4-5.0)
[2020-01-13 16:35] LABS: CALCIUM 8.1 mg/dL (8.4-10.2); CREATININE, serum 0.77 (0.52-1.25); POTASSIUM 4.1 mmol/L (3.4-5.0)
[2020-01-13 18:48] LABS: CALCIUM 8.2 mg/dL (8.4-10.2); CREATININE, serum 0.8 (0.52-1.25); POTASSIUM 3.8 mmol/L (3.4-5.0)
--- NOTE | 2020-01-13 19:18 | NUR ---
Bedside report given to ZAINA Urbina.
--- NOTE | 2020-01-13 19:20 | NUR ---
Bedside report received from ZAINA Blancas
--- NOTE | 2020-01-13 20:00 | NUR ---
Patient awake and watching TV. No complaints of pain. Assessment complete. No changes from previous exams. Vitals remain stable. Patient is independent in the room. No further needs at this time. Will continue to monitor. Call light within reach.
[2020-01-13 20:41] LABS: CALCIUM 8.6 mg/dL (8.4-10.2); CREATININE, serum 0.81 (0.52-1.25); POTASSIUM 3.8 mmol/L (3.4-5.0)
[2020-01-13 22:41] LABS: CALCIUM 8.5 mg/dL (8.4-10.2); CREATININE, serum 0.77 (0.52-1.25); POTASSIUM 3.5 mmol/L (3.4-5.0)
[2020-01-14] VITALS (391 sets, daily range): BP systolic 107–146; BP diastolic 62–72; PULSE 48–71; TEMP 97.6–98.5; O2SAT 85–99
--- NOTE | 2020-01-14 07:25 | NUR ---
Report called to surgical floor. Patient's belongings collected and taken with the patient to new room. Patient transported via wheelchair. No further needs. Will continue to monitor.
--- NOTE | 2020-01-14 08:00 | NUR ---
Patient arrived from ICU via wheelchair. Patient is alert and oriented, answers questions appropriately. Patient is independent to the bathroom where she is continent of urine. Patient denies pain or needs at this time, call light within reach.
--- NOTE | 2020-01-14 09:20 | NUR ---
SW met with the patient to discuss discharge plan. The patient lives alone in [place]. She states that her mother, Tiny Wells (ph#[phone]), and younger sister also live here in [place]. She reports independence with ADLs and does not have any DME. The patient's PCP is Dr. Zayra Holliday and she receives her medications at [facility]. She reports no difficulties obtaining her meds. The patient does not have advanced directives and she was not interested in completing them at this time. She states that her mother is her next of kin. The patient plans to return home upon discharge. No additional needs at this time.
[2020-01-14] MEDS ORDERED: LEVEMIR FLEX100 U/ML SQ (13:44)
[2020-01-14] MEDS ORDERED: NOVOLOG FLEX100 U/ML SQ (13:47)
--- NOTE | 2020-01-14 14:20 | NUR ---
Discharge teaching completed. Educated patient on sliding scale, discharge appointments, instructions to d/c use of insulin pump until follow up with cook fry, patient verbalized understanding. Discussed discharge medications. Patient denies questions or needs. Patient escorted to ED entrance via wheelchair where she entered a private vehicle.
== END 2020-01-14 14:30 | disposition home health service (06) | DRG 638 ==
LOC: COL.ER 21:44 → ICU 23:10 → SURG 01-14 07:58
PROVIDERS: Emergency Medicine; Nurse Practitioner Family; ADMIT Hospitalist
DX: E10.10 Type 1 diabetes mellitus with ketoacidosis without coma (principal); K50.90 Crohn's disease, unspecified, without complications; K21.9 Gastro-esophageal reflux disease without esophagitis; G43.909 Migraine, unspecified, not intractable, without status migrainosus; F32.9 Major depressive disorder, single episode, unspecified; Z96.41 Presence of insulin pump (external) (internal); E86.0 Dehydration; E83.39 Other disorders of phosphorus metabolism; E87.6 Hypokalemia; E03.9 Hypothyroidism, unspecified; Z90.49 Acquired absence of other specified parts of digestive tract; Z90.710 Acquired absence of both cervix and uterus; Z91.19 Patient's noncompliance with other medical treatment and regimen
CPT/HCPCS: 99223-AI; J1650; J1815; J2405; J3480; J7030

== ENCOUNTER 2020-04-05 15:58 | Emergency (ER) | payer MEDICAID ==
[~2020-04-05] VITALS: Ht 160 cm; Wt 70.9 kg
[~2020-04-05 15:58] MED LIST changes: +ANTI-DIARRHEAL2 MG PO; +BAQSIMI3 MG NS; +FIASP 100100 UNIT/2 SQ; +FLONASE SENSIM9.9 ML NS; +PROCARDIA XL 6060 MG PO; +VITAMINC1000TA PO
[2020-04-05 16:06] VITALS: TEMP 97.7
[2020-04-05 16:28] LABS: BASO % 0.3 % (0.0-2.0); EOS # 0.1 (0.0-0.7); EOS % 1.4 % (0-4.0); GRAN # 3.6 (1.4-6.5); GRAN % 50.5 % (42.2-75.2); HEMOGLOBIN 12.2 g/dl (12.5-16.0); LYMPH % 42.3 % (20.0-51.0); MEAN CELL VOLUME 83 fl (80.0-100.0); MEAN CORPUSCULAR HEMOGLOBIN 28 pg (27.0-31.0); MEAN CORPUSCULAR HGB CONC 34 g/dl (33.0-37.0); MEAN PLATELET VOLUME 10.6 fl (7.4-10.4); MONO # 0.4 (0.1-0.6); MONO % 5.4 % (1.7-9.3); PLATELET COUNT 223 K/mm3 (130-400); RED BLOOD COUNT 4.39 M/mm3 (4.10-5.30); REDCELL DISTRIBUTION WIDTH-CV 12.7 % (11.5-14.5)
[2020-04-05 16:29] LABS: HEMATOCRIT 36.4 % (37.0-47.0)
[2020-04-05 16:37] LABS: ALANINE AMINOTRANSFERASE 44 U/L (4-34); ALBUMIN 4.4 gm/dL (3.5-5.0); ALKALINE PHOSPHATASE 96 U/L (50-136); ANION GAP 8 mmol/L (7-16); AST,SGOT 31 U/L (15-37); BILIRUBIN,TOTAL 0.6 mg/dL (0.0-1.0); BLOOD UREA NITROGEN 16 mg/dL (7-17); CALCIUM 9.7 mg/dL (8.4-10.2); CARBON DIOXIDE 26 mmol/L (22-30); CHLORIDE 103 mmol/L (98-107); CREATININE, serum 0.65 (0.52-1.25); GLUCOSE 138 mg/dL (74-106); POTASSIUM 3.8 mmol/L (3.4-5.0); SODIUM 137 mmol/L (137-145); TOTAL PROTEIN 7.6 gm/dL (6.4-8.2)
[2020-04-05 16:49] LABS: TROPONIN-I < 0.012 ng/mL (0.000-0.035)
[2020-04-05 17:05] VITALS: BP 111/79; PULSE 78
== END 2020-04-05 17:05 | disposition home or self-care (01) ==
LOC: COL.ER 15:58
PROVIDERS: Nurse Practitioner Primary Care
DX: R07.89 Other chest pain (principal); K21.9 Gastro-esophageal reflux disease without esophagitis; E10.9 Type 1 diabetes mellitus without complications; F32.9 Major depressive disorder, single episode, unspecified; F41.9 Anxiety disorder, unspecified; E03.9 Hypothyroidism, unspecified
CPT/HCPCS: J0780; J7030

== ENCOUNTER 2020-04-12 17:33 | Emergency (ER) | payer MEDICAID ==
[~2020-04-12] VITALS: Ht 160 cm; Wt 70.9 kg
[2020-04-12 17:45] VITALS: TEMP 97.9
[2020-04-12 18:50] VITALS: BP 120/70; PULSE 80
== END 2020-04-12 18:54 | disposition home or self-care (01) ==
LOC: COL.ER 17:33
DX: L74.0 Miliaria rubra (principal); E10.9 Type 1 diabetes mellitus without complications; F32.9 Major depressive disorder, single episode, unspecified; F41.9 Anxiety disorder, unspecified; K21.9 Gastro-esophageal reflux disease without esophagitis; E03.9 Hypothyroidism, unspecified; Z79.51 Long term (current) use of inhaled steroids; Z90.710 Acquired absence of both cervix and uterus

== ENCOUNTER 2020-09-25 11:55 | Emergency (ER) | payer MEDICAID ==
[~2020-09-25] VITALS: Ht 160 cm; Wt 72.3 kg
[2020-09-25 12:24] VITALS: TEMP 98.3
[2020-09-25 12:59] LABS: BASO % 0.2 % (0.0-2.0); EOS # 0.1 (0.0-0.7); EOS % 1.1 % (0-4.0); GRAN # 8.2 (1.4-6.5); GRAN % 67.9 % (42.2-75.2); HEMATOCRIT 39.8 % (37.0-47.0); HEMOGLOBIN 13.3 g/dl (12.5-16.0); LYMPH # 2.8 (1.2-3.4); LYMPH % 23.2 % (20.0-51.0); MEAN CELL VOLUME 83 fl (80.0-100.0); MEAN CORPUSCULAR HEMOGLOBIN 28 pg (27.0-31.0); MEAN CORPUSCULAR HGB CONC 33 g/dl (33.0-37.0); MEAN PLATELET VOLUME 10.5 fl (7.4-10.4); MONO # 0.9 (0.1-0.6); MONO % 7.3 % (1.7-9.3); PLATELET COUNT 282 K/mm3 (130-400); RED BLOOD COUNT 4.79 M/mm3 (4.10-5.30); REDCELL DISTRIBUTION WIDTH-CV 12.2 % (11.5-14.5)
[2020-09-25 13:20] LABS: ALBUMIN 4.9 gm/dL (3.5-5.0); C-REACTIVE PROTEIN 1.3 mg/dL (0.0-0.9); CALCIUM 9.7 mg/dL (8.4-10.2); CREATININE, serum 0.87 (0.52-1.25); POTASSIUM 3.8 mmol/L (3.4-5.0); TOTAL PROTEIN 8.1 gm/dL (6.4-8.2)
[2020-09-25] MEDS ORDERED: ZOFRAN ODT4 MG PO (15:24)
[2020-09-25 15:45] VITALS: BP 122/72; PULSE 84
== END 2020-09-25 15:45 | disposition home or self-care (01) ==
LOC: COL.ER 11:55
PROVIDERS: Family Medicine
DX: F41.9 Anxiety disorder, unspecified (principal); E10.9 Type 1 diabetes mellitus without complications; Z90.710 Acquired absence of both cervix and uterus; Z90.49 Acquired absence of other specified parts of digestive tract; Z90.89 Acquired absence of other organs; Z88.8 Allergy status to other drugs, medicaments and biological substances; Z88.6 Allergy status to analgesic agent; Z88.5 Allergy status to narcotic agent; Z79.4 Long term (current) use of insulin
CPT/HCPCS: C9113; J2060; J2550; J7120

== ENCOUNTER 2020-12-25 15:51 | Outpatient (RCR) | payer MEDICAID ==
[~2020-12-25 15:51] MED LIST changes: +ZOFRAN ODT4 MG PO
== END 2021-03-25 | disposition still patient (30) ==
LOC: MKS.ESL.OT
DX: M54.12 Radiculopathy, cervical region (principal)

== ENCOUNTER → 2020-12-28 | Outpatient (CLI) | payer MEDICAID | LOC: COL.RAD 09:35 | DX: G56.22 Lesion of ulnar nerve, left upper limb (principal); G56.02 Carpal tunnel syndrome, left upper limb ==

== ENCOUNTER 2021-04-03 12:11 | Emergency (ER) | payer MEDICAID ==
[~2021-04-03] VITALS: Ht 160 cm; Wt 73.6 kg
[2021-04-03 13:43] LABS: ALANINE AMINOTRANSFERASE 53 U/L (4-34); ALBUMIN 4.7 gm/dL (3.5-5.0); ALKALINE PHOSPHATASE 136 U/L (50-136); ANION GAP 7 mmol/L (7-16); AST,SGOT 134 U/L (15-37); BILIRUBIN,TOTAL 0.5 mg/dL (0.0-1.0); BLOOD UREA NITROGEN 17 mg/dL (7-17); CALCIUM 10.3 mg/dL (8.4-10.2); CARBON DIOXIDE 25 mmol/L (22-30); CHLORIDE 103 mmol/L (98-107); GLUCOSE 202 mg/dL (74-106); POTASSIUM 3.6 mmol/L (3.4-5.0); SODIUM 135 mmol/L (137-145); TOTAL PROTEIN 8.4 gm/dL (6.4-8.2)
[2021-04-03 13:46] LABS: BASO % 0.1 % (0.0-2.0); EOS # 0.1 (0.0-0.7); EOS % 1.2 % (0-4.0); GRAN # 4.1 (1.4-6.5); GRAN % 53.5 % (42.2-75.2); HEMATOCRIT 38.7 % (37.0-47.0); HEMOGLOBIN 12.7 g/dl (12.5-16.0); LYMPH % 39.3 % (20.0-51.0); MEAN CELL VOLUME 82 fl (80.0-100.0); MEAN CORPUSCULAR HEMOGLOBIN 27 pg (27.0-31.0); MEAN CORPUSCULAR HGB CONC 33 g/dl (33.0-37.0); MEAN PLATELET VOLUME 11.5 fl (7.4-10.4); MONO # 0.4 (0.1-0.6); MONO % 5.6 % (1.7-9.3); PLATELET COUNT 257 K/mm3 (130-400); REDCELL DISTRIBUTION WIDTH-CV 12.3 % (11.5-14.5)
[2021-04-03 13:56] LABS: TROPONIN-I < 0.012 ng/mL (0.000-0.035)
[2021-04-03 14:05] LABS: C-REACTIVE PROTEIN 0.8 mg/dL (0.0-0.9); LIPASE 64 U/L (23-300)
[2021-04-03 16:44] VITALS: BP 129/80; PULSE 76; TEMP 98.6
== END 2021-04-03 16:45 | disposition home or self-care (01) ==
LOC: COL.ER 12:11
PROVIDERS: Nurse Practitioner
DX: R10.13 Epigastric pain (principal); R07.89 Other chest pain; E10.9 Type 1 diabetes mellitus without complications; Z90.49 Acquired absence of other specified parts of digestive tract; Z90.710 Acquired absence of both cervix and uterus; Z79.4 Long term (current) use of insulin
CPT/HCPCS: J2060

== ENCOUNTER 2021-04-05 11:15 | Outpatient (RCR) | payer MEDICAID | END 2021-06-05 | disposition home or self-care (01) | LOC: MKS.ESL.OT | DX: G56.02 Carpal tunnel syndrome, left upper limb (principal) ==

== ENCOUNTER 2021-05-22 09:05 | Outpatient (RCR) | payer MEDICAID | END 2021-06-13 10:59 | disposition home or self-care (01) | LOC: WSPT 09:05 | DX: M25.512 Pain in left shoulder (principal) ==

== ENCOUNTER 2021-08-25 11:35 | Emergency (ER) | payer MEDICAID ==
[2006-06-04 13:03] VITALS: TEMP 97.4
[~2021-08-25] VITALS: Ht 160 cm; Wt 78.6 kg
[2021-08-25 11:45] VITALS: TEMP 98.3
[2021-08-25] MEDS ORDERED: LEVEMIR FLEX100 U/ML SQ (12:10)
[2021-08-25] MEDS ORDERED: NOVOLOG FLEX100 U/ML SQ (12:11)
[2021-08-25 12:22] LABS: BASO % 0.3 % (0.0-2.0); EOS # 0.1 K/mm3 (0.0-0.7); EOS % 1.1 % (0-4.0); GRAN # 6.1 K/mm3 (1.4-6.5); GRAN % 68.2 % (42.2-75.2); HEMATOCRIT 36.5 % (37.0-47.0); HEMOGLOBIN 12.1 g/dl (12.5-16.0); LYMPH # 2.2 K/mm3 (1.2-3.4); LYMPH % 24.9 % (20.0-51.0); MEAN CELL VOLUME 82 fl (80.0-100.0); MEAN CORPUSCULAR HEMOGLOBIN 27 pg (27.0-31.0); MEAN CORPUSCULAR HGB CONC 33 g/dl (33.0-37.0); MEAN PLATELET VOLUME 10.5 fl (7.4-10.4); MONO # 0.5 K/mm3 (0.1-0.6); MONO % 5.3 % (1.7-9.3); PLATELET COUNT 282 K/mm3 (130-400); RED BLOOD COUNT 4.46 M/mm3 (4.10-5.30); REDCELL DISTRIBUTION WIDTH-CV 12.5 % (11.5-14.5)
[2021-08-25 12:39] LABS: ALBUMIN 3.7 gm/dL (3.5-5.0); BILIRUBIN,TOTAL 0.5 mg/dL (0.2-1.2); CALCIUM 9.5 mg/dL (8.4-10.2); CREATININE, serum 1.3 mg/dL (0.57-1.11); TOTAL PROTEIN 7.3 gm/dL (6.2-8.1)
[2021-08-25 14:02] VITALS: BP 135/86; PULSE 80
== END 2021-08-25 14:07 | disposition home or self-care (01) ==
LOC: COL.ER
PROVIDERS: Personal Emergency Response Attendant
DX: R07.9 Chest pain, unspecified (principal); R94.4 Abnormal results of kidney function studies; E11.9 Type 2 diabetes mellitus without complications; Z79.4 Long term (current) use of insulin
CPT/HCPCS: J1815; J7030

== ENCOUNTER → 2021-08-30 | Outpatient (CLI) | payer MEDICAID | LOC: MC.RAD 07:00 | DX: N63.21 Unspecified lump in the left breast, upper outer quadrant (principal) ==

== ENCOUNTER 2021-10-04 17:33 | Emergency (ER) | payer MEDICAID ==
[2021-10-04 18:07] VITALS: TEMP 98.7
[2021-10-04 19:38] LABS: BASO % 0.4 % (0.0-2.0); EOS # 0.2 K/mm3 (0.0-0.7); EOS % 1.4 % (0-4.0); GRAN % 56.8 % (42.2-75.2); HEMATOCRIT 34.8 % (37.0-47.0); HEMOGLOBIN 11.9 g/dl (12.5-16.0); LYMPH # 3.7 K/mm3 (1.2-3.4); LYMPH % 34.6 % (20.0-51.0); MEAN CELL VOLUME 79 fl (80.0-100.0); MEAN CORPUSCULAR HEMOGLOBIN 27 pg (27.0-31.0); MEAN CORPUSCULAR HGB CONC 34 g/dl (33.0-37.0); MEAN PLATELET VOLUME 9.9 fl (7.4-10.4); MONO # 0.7 K/mm3 (0.1-0.6); MONO % 6.6 % (1.7-9.3); PLATELET COUNT 312 K/mm3 (130-400); RED BLOOD COUNT 4.42 M/mm3 (4.10-5.30); REDCELL DISTRIBUTION WIDTH-CV 12.5 % (11.5-14.5)
[2021-10-04 19:59] LABS: ALANINE AMINOTRANSFERASE 13 U/L (0-55); ALKALINE PHOSPHATASE 120 U/L (40-150); ANION GAP 13 mmol/L (7-16); AST,SGOT 15 U/L (5-34); BILIRUBIN,TOTAL 0.4 mg/dL (0.2-1.2); BLOOD UREA NITROGEN 11 mg/dL (7-19); CALCIUM 9.6 mg/dL (8.4-10.2); CARBON DIOXIDE 23 mmol/L (22-29); CHLORIDE 102 mmol/L (98-107); CREATININE, serum 0.98 mg/dL (0.57-1.11); GLUCOSE 304 mg/dL (70-99); LIPASE 19 U/L (8-78); POTASSIUM 3.9 mmol/L (3.5-4.5); SODIUM 138 mmol/L (136-145); TOTAL PROTEIN 7.2 gm/dL (6.2-8.1)
[2021-10-04 20:04] LABS: ACETONE,SERUM NEGATIVE
[2021-10-04 21:47] VITALS: BP 132/85; PULSE 84
== END 2021-10-04 21:47 | disposition home or self-care (01) ==
LOC: COL.ER 17:33
PROVIDERS: Student in an Organized Health Care Education/Training Program
DX: E11.65 Type 2 diabetes mellitus with hyperglycemia (principal); F32.A Depression, unspecified; E07.9 Disorder of thyroid, unspecified; G43.909 Migraine, unspecified, not intractable, without status migrainosus; Z79.890 Hormone replacement therapy; Z79.4 Long term (current) use of insulin; Z79.899 Other long term (current) drug therapy

== ENCOUNTER → 2022-03-14 | Outpatient (CLI) | payer MEDICAID | LOC: MC.RAD 09:50 | DX: N63.20 Unspecified lump in the left breast, unspecified quadrant (principal) ==

== ENCOUNTER 2022-04-15 09:36 | Emergency (ER) | payer MEDICAID ==
[~2022-04-15] VITALS: Ht 160 cm; Wt 90.5 kg
[2022-04-15 09:42] VITALS: TEMP 97.8
[2022-04-15 10:01] LABS: BASO % 0.1 % (0.0-2.0); EOS # 0.1 K/mm3 (0.0-0.7); EOS % 0.9 % (0.0-4.0); GRAN # 7.1 K/mm3 (1.4-6.5); GRAN % 71.9 % (42.2-75.2); HEMATOCRIT 40.1 % (37.0-47.0); HEMOGLOBIN 13.2 g/dl (12.5-16.0); LYMPH # 2.1 K/mm3 (1.2-3.4); LYMPH % 21.1 % (20.0-51.0); MEAN CELL VOLUME 80 fl (80.0-100.0); MEAN CORPUSCULAR HEMOGLOBIN 26 pg (27-31); MEAN CORPUSCULAR HGB CONC 33 g/dl (33.0-37.0); MEAN PLATELET VOLUME 9.7 fl (7.4-10.4); MONO # 0.6 K/mm3 (0.1-0.6); MONO % 5.6 % (1.7-9.3); PLATELET COUNT 323 K/mm3 (130-400); RED BLOOD COUNT 5.03 M/mm3 (4.10-5.30)
[2022-04-15] MEDS ORDERED: SEROQUEL 2525 MG/TAB PO (10:05)
[2022-04-15] MEDS ORDERED: REXULTI2 MG PO (10:06)
[2022-04-15] MEDS ORDERED: PROVENTIL0.09 MG/A1 IH (10:06)
[2022-04-15 10:24] LABS: ALBUMIN 3.8 gm/dL (3.5-5.0); BILIRUBIN,TOTAL 0.5 mg/dL (0.2-1.2); CREATININE, serum 0.84 mg/dL (0.57-1.11); POTASSIUM 3.6 mmol/L (3.5-4.5); TOTAL PROTEIN 8.2 gm/dL (6.2-8.1)
[2022-04-15] MEDS ORDERED: ZOFRAN ODT4 MG PO (11:01)
[2022-04-15 11:39] VITALS: BP 132/77; PULSE 97
== END 2022-04-15 11:40 | disposition home or self-care (01) ==
LOC: COL.ER 09:36
PROVIDERS: Emergency Medicine
DX: R11.2 Nausea with vomiting, unspecified (principal); E10.9 Type 1 diabetes mellitus without complications; Z79.4 Long term (current) use of insulin; Z87.891 Personal history of nicotine dependence
CPT/HCPCS: J2405; J7120

== ENCOUNTER 2023-08-12 08:50 | Emergency (ER) | payer MEDICAID ==
[~2023-08-12] VITALS: Ht 165.1 cm; Wt 93.6 kg
[~2023-08-12 08:50] MED LIST changes: +PROVENTIL0.09 MG/A1 IH; +REXULTI2 MG PO; +SEROQUEL 2525 MG/TAB PO
[2023-08-12 08:55] VITALS: TEMP 98.1
[2023-08-12 09:31] LABS: BASO % 0.4 % (0.0-2.0); EOS # 0.1 K/mm3 (0.0-0.7); EOS % 1.6 % (0.0-4.0); GRAN # 4.8 K/mm3 (1.4-6.5); GRAN % 60.3 % (42.2-75.2); HEMATOCRIT 39.6 % (37.0-47.0); HEMOGLOBIN 12.9 g/dl (12.5-16.0); LYMPH # 2.6 K/mm3 (1.2-3.4); LYMPH % 32.8 % (20.0-51.0); MEAN CELL VOLUME 80 fl (80.0-100.0); MEAN CORPUSCULAR HEMOGLOBIN 26 pg (27-31); MEAN CORPUSCULAR HGB CONC 33 g/dl (33.0-37.0); MEAN PLATELET VOLUME 9.9 fl (7.4-10.4); MONO # 0.4 K/mm3 (0.1-0.6); MONO % 4.7 % (1.7-9.3); PLATELET COUNT 333 K/mm3 (130-400); RED BLOOD COUNT 4.97 M/mm3 (4.10-5.30); REDCELL DISTRIBUTION WIDTH-CV 13.2 % (11.5-14.5)
[2023-08-12 09:54] LABS: ALBUMIN 3.7 gm/dL (3.5-5.0); BILIRUBIN,TOTAL 0.4 mg/dL (0.2-1.2); CALCIUM 9.7 mg/dL (8.4-10.2); CREATININE, serum 1.01 mg/dL (0.57-1.11); POTASSIUM 4.1 mmol/L (3.5-4.5); TOTAL PROTEIN 7.9 gm/dL (6.2-8.1)
[2023-08-12 10:31] LABS: COLLECTION METHOD CLEAN CATCH
[2023-08-12 11:11] LABS: SQUAMOUS EPITHELIAL 0-2 /hpf (0-10); URINE APPEARANCE Clear (CLEAR/HAZY); URINE BACTERIA None Seen /hpf (NONE SEEN); URINE BLOOD Negative (NEGATIVE); URINE COLOR Yellow (YELLOW); URINE GLUCOSE Negative (NEGATIVE); URINE KETONE Negative (NEGATIVE); URINE NITRATE Negative (NEGATIVE); URINE PROTEIN(semi-quant) Negative (NEGATIVE); URINE UROBILINOGEN 0.2 E.U/dL (0.2-1.0)
[2023-08-12 11:51] VITALS: BP 134/84; PULSE 104
== END 2023-08-12 11:51 | disposition home or self-care (01) ==
LOC: COL.ER 08:50
PROVIDERS: Emergency Medicine
DX: R10.32 Left lower quadrant pain (principal); Z90.49 Acquired absence of other specified parts of digestive tract; Z87.891 Personal history of nicotine dependence
CPT/HCPCS: Q9967

== ENCOUNTER 2023-08-12 18:33 | Emergency (ER) | payer MEDICAID ==
[~2023-08-12] VITALS: Ht 165.1 cm; Wt 93.6 kg
[2023-08-12 18:47] VITALS: TEMP 98.8
[2023-08-12 21:14] VITALS: BP 148/93; PULSE 99
== END 2023-08-12 21:14 | disposition home or self-care (01) ==
LOC: COL.ER 18:33
DX: R10.32 Left lower quadrant pain (principal); Z90.49 Acquired absence of other specified parts of digestive tract

== ENCOUNTER 2024-07-28 11:15 | Outpatient (RCR) | payer MEDICAID | END 2024-08-02 | disposition home or self-care (01) | LOC: MKS.ESL.PT | DX: M25.562 Pain in left knee (principal) ==